=== PATIENT | female | born 1990 | race Two or more races ===

== ENCOUNTER 2018-07-20 11:25 | Inpatient (IN) | payer OTHER, MEDICAID ==
[~2018-07-20] VITALS: Ht 170.2 cm; Wt 80.7 kg
[2018-07-20 11:59] VITALS: BP 118/83
[2018-07-20 12:15] LABS: APPEARANCE,URINE CLEAR; BASOPHILS % (AUTO) 1.8 % (0.0-2.0); BILIRUBIN, URINE NEGATIVE (NEGATIVE); COLOR,URINE PALE YELLOW; EOSINOPHILS % (AUTO) 6.1 % (0.0-3.0); GLUCOSE, URINE (UA) NEGATIVE (NEGATIVE); HEMATOCRIT 41.9 % (37.0-47.0); HEMOGLOBIN 14.5 G/DL (12.0-16.0); KETONES,URINE NEGATIVE (NEGATIVE); LEUKOCYTE ESTERASE ,URINE 3+ (NEGATIVE); LYMPHOCYTES % (AUTO) 39.3 % (20.0-45.0); MEAN CORPUSCULAR VOLUME 86 FL (80-99); MONOCYTES % (AUTO) 4.7 % (1.0-10.0); NEUTROPHILS % (AUTO) 48.2 % (45.0-75.0); NITRITE,URINE NEGATIVE (NEGATIVE); PH,URINE 7 (4.5-8.0); PLATELET COUNT 302 K/UL (150-450); PROTEIN,URINE NEGATIVE (NEGATIVE); RED BLOOD COUNT 4.89 M/UL (4.20-5.40); RED CELL DISTRIBUTION WIDTH 10.3 % (11.6-14.8); UROBILINOGEN,URINE NORMAL MG/DL (0.0-1.0); WHITE BLOOD COUNT 6.7 K/UL (4.8-10.8)
[2018-07-20 12:18] LABS: ANION GAP 11 mmol/L (5-15); BLOOD UREA NITROGEN 8 mg/dL (7-18); CALCIUM 9.5 MG/DL (8.5-10.1); CARBON DIOXIDE 25 MMOL/L (21-32); CHLORIDE 103 MMOL/L (98-107); CREATININE 0.7 MG/DL (0.55-1.30); POTASSIUM 3.7 MMOL/L (3.5-5.1); SODIUM 139 MMOL/L (136-145)
[2018-07-20 12:23] LABS: ALANINE AMINOTRANSFERASE 25 U/L (12-78); ALBUMIN 3.7 G/DL (3.4-5.0); ALBUMIN/GLOBULIN RATIO 0.8 (1.0-2.7); ALKALINE PHOSPHATASE 79 U/L (46-116); ASPARTATE AMINO TRANSFERASE 17 U/L (15-37); BILIRUBIN,TOTAL 0.3 MG/DL (0.2-1.0)
[2018-07-20 13:05] VITALS: BP 100/69
--- NOTE | 2018-07-20 13:20 | Emergency Room Report ---
History of Present Illness General Chief Complaint: General Complaint Source: Patient Present Illness HPI Patient presents emergency department today complaining of severe left axilla pain. Patient states that she has a history of hidradenitis. Symptoms seem to be getting worse she was seen by her surgeon and since emergency department for evaluation and admission. Patient denies any fever chest pain shortness of breath. No other complaints are noted. Symptoms noted to be moderate.No other modifying factors. No other associated signs and symptoms. No other complaints were noted. Allergies: Coded Allergies: No Known Allergies (Unverified , 07/20/18) Patient History Past Medical History: none Past Surgical History: none Pertinent Family History: none Social History: Denies: smoking, alcohol use, drug use Last Menstrual Period: 07/15/18 Reviewed Nursing Documentation: PMH: Agreed; PSxH: Agreed Nursing Documentation-PMH Past Medical History: No Stated History Review of Systems All Other Systems: negative except mentioned in HPI Physical Exam Vital Signs Date Time Temp Pulse Resp B/P (MAP) Pulse Ox O2 Delivery O2 Flow Rate FiO2 07/20/18 11:30 97.9 73 18 137/93 97 Room Air Sp02 EP Interpretation: reviewed, normal General Appearance: normal inspection, well appearing, no apparent distress, alert Head: atraumatic Eyes: bilateral eye normal inspection ENT: normal ENT inspection, hearing grossly normal, normal voice Neck: normal inspection, full range of motion, supple, no bony tend Respiratory: normal inspection, lungs clear, normal breath sounds, no respiratory distress, no retraction, no wheezing Cardiovascular #1: regular rate, rhythm, no edema Gastrointestinal: normal inspection, normal bowel sounds, non tender, soft, no guarding, no hernia Genitourinary: no CVA tenderness Musculoskeletal: normal inspection, back normal, normal range of motion, other - Left axilla swelling consistent with hidradenitis Tender Neurologic: normal inspection, alert, responsive, speech normal Psychiatric: normal inspection, judgement/insight normal, mood/affect normal Skin: normal inspection, normal color, no rash Medical Decision Making Diagnostic Impression: Primary Impression: Hidradenitis ER Course Patient presents emergency department today complaint left axilla pain and swelling. Case discussed with Dr. Victor Manuel inman. Patient will be admitted to their service for further treatment and management. Patient's urine was positive for possible UTI. However patient is asymptomatic therefore we'll hold on antibiotics until further evaluation by inpatient team. Differential diagnoses include hidradenitis lymphadenopathy cellulitis. Given presentation is likely hidradenitis and will require surgical intervention. Labs Test 07/20/18 11:48 White Blood Count 6.7 K/UL (4.8-10.8) Red Blood Count 4.89 M/UL (4.20-5.40) Hemoglobin 14.5 G/DL (12.0-16.0) Hematocrit 41.9 % (37.0-47.0) Mean Corpuscular Volume 86 FL (80-99) Mean Corpuscular Hemoglobin 29.6 PG (27.0-31.0) Mean Corpuscular Hemoglobin Concent 34.5 G/DL (32.0-36.0) Red Cell Distribution Width 10.3 % (11.6-14.8) Platelet Count 302 K/UL (150-450) Mean Platelet Volume 8.7 FL (6.5-10.1) Neutrophils (%) (Auto) 48.2 % (45.0-75.0) Lymphocytes (%) (Auto) 39.3 % (20.0-45.0) Monocytes (%) (Auto) 4.7 % (1.0-10.0) Eosinophils (%) (Auto) 6.1 % (0.0-3.0) Basophils (%) (Auto) 1.8 % (0.0-2.0) Prothrombin Time 10.6 SEC (9.30-11.50) Prothromb Time International Ratio 1.0 (0.9-1.1) Activated Partial Thromboplast Time 30 SEC (23-33) Urine Color Pale yellow Urine Appearance Clear Urine pH 7 (4.5-8.0) Urine Specific [place] 1.005 (1.005-1.035) Urine Protein Negative (NEGATIVE) Urine Glucose (UA) Negative (NEGATIVE) Urine Ketones Negative (NEGATIVE) Urine Blood 5+ (NEGATIVE) Urine Nitrite Negative (NEGATIVE) Urine Bilirubin Negative (NEGATIVE) Urine Urobilinogen Normal MG/DL (0.0-1.0) Urine Leukocyte Esterase 3+ (NEGATIVE) Urine RBC 2-4 /HPF (0 - 2) Urine WBC 5-10 /HPF (0 - 2) Urine Squamous Epithelial Cells Few /LPF (NONE/OCC) Urine Bacteria Few /HPF (NONE) Urine HCG, Qualitative Negative (NEGATIVE) Sodium Level 139 MMOL/L (136-145) Potassium Level 3.7 MMOL/L (3.5-5.1) Chloride Level 103 MMOL/L (98-107) Carbon Dioxide Level 25 MMOL/L (21-32) Anion Gap 11 mmol/L (5-15) Blood Urea Nitrogen 8 mg/dL (7-18) Creatinine 0.7 MG/DL (0.55-1.30) Estimat Glomerular Filtration Rate > 60 mL/min (>60) Glucose Level 92 MG/DL (74-106) Calcium Level 9.5 MG/DL (8.5-10.1) Total Bilirubin 0.3 MG/DL (0.2-1.0) Aspartate Amino Transf (AST/SGOT) 17 U/L (15-37) Alanine Aminotransferase (ALT/SGPT) 25 U/L (12-78) Alkaline Phosphatase 79 U/L (46-116) Total Protein 8.6 G/DL (6.4-8.2) Albumin 3.7 G/DL (3.4-5.0) Globulin 4.9 g/dL Albumin/Globulin Ratio 0.8 (1.0-2.7) Last Vital Signs Date Time Temp Pulse Resp B/P (MAP) Pulse Ox O2 Delivery O2 Flow Rate FiO2 07/20/18 13:15 97.9 74 18 100/69 96 Room Air Status: improved Disposition: ADMITTED INPATIENT Condition: Stable Scripts No Active Prescriptions or Reported Meds Referrals: Jessica Jack MD (PCP) Julius Hamilton MD Jul 20, 2018 13:20
--- NOTE | 2018-07-20 14:14 | History and Physical ---
History of Present Illness General Date patient seen: Jul 20, 2018 Time patient seen: 14:00 Reason for Hospitalization: General Complaint Present Illness HPI 27 yo F PMH of HS presents with complaints of B/L axillary tenderness pain, swelling and intermittent drainage. Patient denies any fevers or chills at home. Patient states she has never had anesthesia before but denies any known allergies to medication. Patient is able to climb a flight of stairs and jog without any chest pain or shortness of breath. Patient has never and does not currently smoke or do drugs. ALL: NKDA Home Meds: None PMH: Hidradenitis Suppurativa PSH: none FmHX: None Soc Hx: etoh - occasional, denies tobacco or drug use Allergies: Coded Allergies: No Known Allergies (Unverified , 07/20/18) Medication History No Active Prescriptions or Reported Meds Patient History Healthcare decision maker Resuscitation status Advanced Directive on File Review of Systems All Other Systems: negative except mentioned in HPI ROS Narrative Aside from HPI all other ROS are negative including more than 12 systems Physical Exam General Appearance: no apparent distress, alert Lines, tubes and drains: peripheral HEENT: normocephalic, atraumatic, anicteric, mucous membranes moist Neck: non-tender, normal alignment, normal inspection Respiratory/Chest: chest wall non-tender, lungs clear, normal breath sounds, no respiratory distress, no accessory muscle use, other - B/L axilla are tender to palpation and erythematous with serosangious drainage Cardiovascular/Chest: normal peripheral pulses, normal rate, regular rhythm, no gallop/murmur, no JVD Abdomen: non tender, soft, no organomegaly, no mass, abnormal bowel sounds Extremities: normal range of motion, non-tender, normal inspection, no calf tenderness Skin Exam: normal pigmentation, warm/dry Neurologic: non acoustic operator II-XII grossly normal, no motor/sensory deficits, oriented x 3 , responsive, normal mood/affect Musculoskeletal: normal muscle bulk Last 24 Hour Vital Signs Date Time Temp Pulse Resp B/P (MAP) Pulse Ox O2 Delivery O2 Flow Rate FiO2 07/20/18 13:15 97.9 74 18 100/69 96 Room Air 07/20/18 13:05 97.9 74 18 100/69 96 Room Air 07/20/18 11:59 97.9 73 18 118/83 96 Room Air 07/20/18 11:40 73 18 Room Air 07/20/18 11:30 97.9 73 18 137/93 97 Room Air Laboratory Tests Test 07/20/18 11:48 White Blood Count 6.7 K/UL (4.8-10.8) Red Blood Count 4.89 M/UL (4.20-5.40) Hemoglobin 14.5 G/DL (12.0-16.0) Hematocrit 41.9 % (37.0-47.0) Mean Corpuscular Volume 86 FL (80-99) Mean Corpuscular Hemoglobin 29.6 PG (27.0-31.0) Mean Corpuscular Hemoglobin Concent 34.5 G/DL (32.0-36.0) Red Cell Distribution Width 10.3 % (11.6-14.8) L Platelet Count 302 K/UL (150-450) Mean Platelet Volume 8.7 FL (6.5-10.1) Neutrophils (%) (Auto) 48.2 % (45.0-75.0) Lymphocytes (%) (Auto) 39.3 % (20.0-45.0) Monocytes (%) (Auto) 4.7 % (1.0-10.0) Eosinophils (%) (Auto) 6.1 % (0.0-3.0) H Basophils (%) (Auto) 1.8 % (0.0-2.0) Prothrombin Time 10.6 SEC (9.30-11.50) Prothromb Time International Ratio 1.0 (0.9-1.1) Activated Partial Thromboplast Time 30 SEC (23-33) Urine Color Pale yellow Urine Appearance Clear Urine pH 7 (4.5-8.0) Urine Specific [place] 1.005 (1.005-1.035) Urine Protein Negative (NEGATIVE) Urine Glucose (UA) Negative (NEGATIVE) Urine Ketones Negative (NEGATIVE) Urine Blood 5+ (NEGATIVE) H Urine Nitrite Negative (NEGATIVE) Urine Bilirubin Negative (NEGATIVE) Urine Urobilinogen Normal MG/DL (0.0-1.0) Urine Leukocyte Esterase 3+ (NEGATIVE) H Urine RBC 2-4 /HPF (0 - 2) H Urine WBC 5-10 /HPF (0 - 2) H Urine Squamous Epithelial Cells Few /LPF (NONE/OCC) Urine Bacteria Few /HPF (NONE) Urine HCG, Qualitative Negative (NEGATIVE) Sodium Level 139 MMOL/L (136-145) Potassium Level 3.7 MMOL/L (3.5-5.1) Chloride Level 103 MMOL/L (98-107) Carbon Dioxide Level 25 MMOL/L (21-32) Anion Gap 11 mmol/L (5-15) Blood Urea Nitrogen 8 mg/dL (7-18) Creatinine 0.7 MG/DL (0.55-1.30) Estimat Glomerular Filtration Rate > 60 mL/min (>60) Glucose Level 92 MG/DL (74-106) Calcium Level 9.5 MG/DL (8.5-10.1) Total Bilirubin 0.3 MG/DL (0.2-1.0) Aspartate Amino Transf (AST/SGOT) 17 U/L (15-37) Alanine Aminotransferase (ALT/SGPT) 25 U/L (12-78) Alkaline Phosphatase 79 U/L (46-116) Total Protein 8.6 G/DL (6.4-8.2) H Albumin 3.7 G/DL (3.4-5.0) Globulin 4.9 g/dL Albumin/Globulin Ratio 0.8 (1.0-2.7) L Height (Feet): 5 Height (Inches): 7.00 Weight (Pounds): 180 Assessment/Plan Problem List: (1) Abscess ICD Codes: L02.91 - Cutaneous abscess, unspecified SNOMED: 980284423 (2) Hidradenitis ICD Codes: L73.2 - Hidradenitis suppurativa SNOMED: 29203300 Status: stable Assessment/Plan B/L Axillary Hidradenitis Suppurativa with Abscess - Patient to be evaluated by Dr. Jack - pain control - IVF and IV ABX - mobilization - IS use - bowel regimen - supportive care - EKG reviewed and NSR with no ST changes or T wave changes If patient is required to have surgery, based on the patient's medical history, and other available ancillary data, the patient is a LOW risk for an INTERMEDIATE risk procedure. Per the most recent ACC/AHA guidelines, the patient does not need any further cardiopulmonary testing prior to the procedure and there do not appear to be any clear medical contraindications to proceeding with the proposed procedure. METs>4 I have spent 70 minute regarding patient care and counseling along with 35 minutes of [id number] time. Cristal Huddleston DO Jul 20, 2018 14:14
[2018-07-20] MEDS ORDERED: PCA HYDROmorphone 1mg/ml 30 ML IV PRN ×2 (14:15→14:30)
[2018-07-20] MEDS ORDERED: Morphine Sulfate 2mg/ml Inj IVP PRN (14:15)
[2018-07-20] MEDS ORDERED: HYDROcodone/Acetamin 10/325 tab ORAL PRN (14:15)
[2018-07-20] MEDS ORDERED: Norco 5mg/325mg tab ORAL PRN (14:15)
[2018-07-20] MEDS ORDERED: Naloxone 0.4mg/ml Inj IVP PRN (14:30)
[2018-07-20] MEDS ORDERED: Rate Change PCA 1 Each MISC PRN (14:30)
[2018-07-20] MEDS ORDERED: PCA Education Pamphlet MISC ONE (14:30)
[2018-07-20] MEDS: ceFAZolin sod 1 GM in D5W 55 ML IVPB SCH ×2 (17:15→21:51)
[2018-07-20] MEDS ORDERED: PCA shift volume MISC SCH (19:00)
[2018-07-20 20:00] VITALS: BP 134/95
[2018-07-20] MEDS ORDERED: Milk of Magnesia 30ml Ud ORAL PRN (21:00)
[2018-07-20] MEDS ORDERED: Zolpidem 5mg tab ORAL PRN (21:00)
[2018-07-20] MEDS: Docusate 100mg cap ORAL SCH (21:51)
[2018-07-20] MEDS: Heparin 5000 units/ml inj SUBQ SCH (21:53)
[2018-07-21] VITALS (15 sets, daily range): BP systolic 130–175; BP diastolic 56–99
[2018-07-21] MEDS: ceFAZolin sod 1 GM in D5W 55 ML IVPB SCH ×3 (06:18→21:02)
[2018-07-21 07:07] LABS: BASOPHILS % (AUTO) 1.9 % (0.0-2.0); EOSINOPHILS % (AUTO) 6.5 % (0.0-3.0); HEMATOCRIT 42.2 % (37.0-47.0); HEMOGLOBIN 14.4 G/DL (12.0-16.0); LYMPHOCYTES % (AUTO) 35.8 % (20.0-45.0); MEAN CORPUSCULAR VOLUME 86 FL (80-99); MONOCYTES % (AUTO) 5.7 % (1.0-10.0); NEUTROPHILS % (AUTO) 50.1 % (45.0-75.0); PLATELET COUNT 304 K/UL (150-450); RED BLOOD COUNT 4.91 M/UL (4.20-5.40); RED CELL DISTRIBUTION WIDTH 10.4 % (11.6-14.8); WHITE BLOOD COUNT 5.9 K/UL (4.8-10.8)
[2018-07-21 07:57] LABS: ANION GAP 11 mmol/L (5-15); BLOOD UREA NITROGEN 10 mg/dL (7-18); CALCIUM 9.2 MG/DL (8.5-10.1); CARBON DIOXIDE 24 MMOL/L (21-32); CHLORIDE 105 MMOL/L (98-107); CREATININE 0.7 MG/DL (0.55-1.30); POTASSIUM 4.3 MMOL/L (3.5-5.1); SODIUM 140 MMOL/L (136-145)
--- NOTE | 2018-07-21 08:08 | General Progress Note ---
Assessment/Plan Problem List: (1) Hidradenitis ICD Codes: L73.2 - Hidradenitis suppurativa SNOMED: 01861197 (2) Abscess ICD Codes: L02.91 - Cutaneous abscess, unspecified SNOMED: 532782939 Status: doing well, stable Assessment/Plan B/L Axillary Hidradenitis Suppurativa with Abscess -planned for eval by Dr. Jack.. planned for surgery today - has been npo since midngith - cont pain control, in no acute pain currently - IVF and iv abx to be continues - mobilization - IS use - bowel regimen - supportive care - EKG reviewed and NSR with no ST changes or T wave changes If patient is required to have surgery, based on the patient's medical history, and other available ancillary data, the patient is a LOW risk for an INTERMEDIATE risk procedure. Per the most recent ACC/AHA guidelines, the patient does not need any further cardiopulmonary testing prior to the procedure and there do not appear to be any clear medical contraindications to proceeding with the proposed procedure. METs>4 I have spent 66 minute regarding patient care and counseling along with 35 minutes of [id number] time. Althea Salas MD Please feel free to contact me at any time. Thank You. Subjective Date patient seen: Jul 21, 2018 Time patient seen: 07:58 Allergies: Coded Allergies: No Known Allergies (Unverified , 07/20/18) All Systems: reviewed and negative except above Subjective patient doing well denies any complaints currently, pain well controlled denies any fevers/chills denies nausea/vomiting denies constipation or diarrhea patient is aware of procedure planned for today has been NPO since midnight Objective Last 24 Hour Vital Signs Date Time Temp Pulse Resp B/P (MAP) Pulse Ox O2 Delivery O2 Flow Rate FiO2 07/21/18 04:47 98.0 76 17 150/89 (109) 98 07/21/18 00:00 98.0 68 16 130/87 (101) 100 07/20/18 20:00 97.1 72 18 134/95 (108) 100 07/20/18 14:38 Room Air 07/20/18 14:24 Room Air 07/20/18 13:15 97.9 74 18 100/69 96 Room Air 07/20/18 13:05 97.9 74 18 100/69 96 Room Air 07/20/18 11:59 97.9 73 18 118/83 96 Room Air 07/20/18 11:40 73 18 Room Air 07/20/18 11:30 97.9 73 18 137/93 97 Room Air Intake and Output 07/20/18 07/21/18 19:00 07:00 Intake Total 390 ml 660 ml Balance 390 ml 660 ml Intake Oral 340 ml IV Total 50 ml 660 ml # Voids 1 2 Laboratory Tests 07/20/18 11:48: White Blood Count 6.7, Red Blood Count 4.89, Hemoglobin 14.5, Hematocrit 41.9, Mean Corpuscular Volume 86, Mean Corpuscular Hemoglobin 29.6, Mean Corpuscular Hemoglobin Concent 34.5, Red Cell Distribution Width 10.3L, Platelet Count 302, Mean Platelet Volume 8.7, Neutrophils (%) (Auto) 48.2, Lymphocytes (%) (Auto) 39.3, Monocytes (%) (Auto) 4.7, Eosinophils (%) (Auto) 6.1H, Basophils (%) (Auto ) 1.8, Prothrombin Time 10.6, Prothromb Time International Ratio 1.0, Activated Partial Thromboplast Time 30, Urine Color Pale yellow, Urine Appearance Clear, Urine pH 7, Urine Specific [place] 1.005, Urine Protein Negative, Urine Glucose (UA) Negative, Urine Ketones Negative, Urine Blood 5+H, Urine Nitrite Negative, Urine Bilirubin Negative, Urine Urobilinogen Normal, Urine Leukocyte Esterase 3+ H, Urine RBC 2-4H, Urine WBC 5-10H, Urine Squamous Epithelial Cells Few, Urine Bacteria Few, Urine HCG, Qualitative Negative, Sodium Level 139, Potassium Level 3.7, Chloride Level 103, Carbon Dioxide Level 25, Anion Gap 11, Blood Urea Nitrogen 8, Creatinine 0.7, Estimat Glomerular Filtration Rate > 60, Glucose Level 92, Calcium Level 9.5, Total Bilirubin 0.3, Aspartate Amino Transf (AST/SGOT) 17, Alanine Aminotransferase (ALT/SGPT) 25, Alkaline Phosphatase 79, Total Protein 8.6H, Albumin 3.7, Globulin 4.9, Albumin/Globulin Ratio 0.8L 07/21/18 06:10: White Blood Count 5.9, Red Blood Count 4.91, Hemoglobin 14.4, Hematocrit 42.2, Mean Corpuscular Volume 86, Mean Corpuscular Hemoglobin 29.3, Mean Corpuscular Hemoglobin Concent 34.1, Red Cell Distribution Width 10.4L, Platelet Count 304, Mean Platelet Volume 8.7, Neutrophils (%) (Auto) 50.1, Lymphocytes (%) (Auto) 35.8, Monocytes (%) (Auto) 5.7, Eosinophils (%) (Auto) 6.5H, Basophils (%) (Auto ) 1.9, Sodium Level [Pending], Potassium Level [Pending], Chloride Level [ Pending], Carbon Dioxide Level [Pending], Blood Urea Nitrogen [Pending], Creatinine [Pending], Estimat Glomerular Filtration Rate [Pending], Glucose Level [Pending], Calcium Level [Pending], Magnesium Level [Pending] Height (Feet): 5 Height (Inches): 7.00 Weight (Pounds): 178 General Appearance: no apparent distress, alert EENT: PERRL/EOMI, normal ENT inspection, pharynx normal Neck: non-tender, normal alignment, supple, normal inspection Cardiovascular: normal peripheral pulses, normal rate, regular rhythm Respiratory/Chest: chest wall non-tender, lungs clear, normal breath sounds, no respiratory distress, no accessory muscle use Abdomen: normal bowel sounds, non tender, soft, no organomegaly, no mass Extremities: normal range of motion, non-tender, normal inspection Skin: other - b/l axillary abscesses with serosanguinous drainage and mild erythema noted, +TTP Althea Salas MD Jul 21, 2018 08:08
[2018-07-21] MEDS: Docusate 100mg cap ORAL SCH ×2 (09:00→18:00)
[2018-07-21] MEDS: Heparin 5000 units/ml inj SUBQ SCH ×2 (09:00→20:19)
[2018-07-21] MEDS ORDERED: Ketorolac 30mg Inj ONE (09:51)
[2018-07-21] MEDS ORDERED: Propofol 200mg/20ml IV ONE (09:51)
[2018-07-21] MEDS ORDERED: Lidocaine 1% MPF 10mg/ml 5ml ONE (09:51)
--- NOTE | 2018-07-21 10:05 | Pre-Procedure Note/Attestation ---
Pre-Procedure Note/Attestation Complete Prior to Procedure Planned Procedure: bilateral Procedure Narrative: Excision of bilateral axillary hidradenitis with chest wall flap elevation Attestation I attest that I discussed the nature of the procedure; its benefits; risks and complications; and alternatives (and the risks and benefits of such alternatives ), prior to the procedure, with the patient (or the patient's legal access services representative). I attest that, if there was a reasonable possibility of needing a blood transfusion, the patient (or the patient's legal access services representative) was given the [facility] standardized written summary, pursuant to the Vishal Sasha Blood Safety Act ([place] Health and Safety Code # 1645, as amended). I attest that I re-evaluated the patient just prior to the surgery and that there has been no change in the patient's H&P, except as documented below: Jessica Jack MD Jul 21, 2018 10:05
[2018-07-21] MEDS ORDERED: Metoclopramide 10mg/2ml Inj IVP PRN ×2 (10:15→11:30)
[2018-07-21] MEDS ORDERED: PCA Education Pamphlet MISC ONE (10:15)
[2018-07-21] MEDS ORDERED: DiphenhydrAMINE 50mg/ml Inj IVP PRN ×2 (10:15→11:30)
[2018-07-21] MEDS ORDERED: Rate Change PCA 1 Each MISC PRN ×2 (10:15→14:30)
[2018-07-21] MEDS ORDERED: Zolpidem 5mg tab ORAL PRN (10:15)
[2018-07-21] MEDS ORDERED: NeoSporin Gu Irrig 1ml Amp IRRIG ONE (10:22)
[2018-07-21] MEDS ORDERED: Bacitracin 50000 Units Vial ONE (10:22)
[2018-07-21] MEDS ORDERED: Lidocaine 1% 10mg/ml/Epi 0.005mg/ml 30ml vial INJ ONE (10:22)
[2018-07-21] MEDS ORDERED: fentaNYL 100 mcg/2 mL IV ONE (10:30)
[2018-07-21] MEDS ORDERED: Naloxone 0.4mg/ml Inj IV PRN ×2 (10:30→13:00)
[2018-07-21] MEDS ORDERED: LR 1000ml ONE (10:30)
[2018-07-21] MEDS ORDERED: Midazolam 2mg/2ml Inj ONE (10:30)
[2018-07-21] MEDS ORDERED: Morphine Sulfate 10mg/ml Inj ONE (11:08)
[2018-07-21] MEDS ORDERED: LR 1000ml 1,000 ML IVLG SCH (11:19)
--- NOTE | 2018-07-21 11:19 | Anethesia Preoperative Eval ---
Anesthesia Pre-op PMH/ROS General Date of Evaluation: Jul 21, 2018 Time of Evaluation: 10:05 Anesthesiologist: Manjula ASA Score: ASA 2 Mallampati Score Class I : Soft palate, uvula, fauces, pillars visible Class II: Soft palate, uvula, fauces visible Class III: Soft palate, base of uvula visible Class IV: Only hard plate visible Mallampati Classification: Class II Surgeon: Marcie Diagnosis: Bilateral axillary HS Surgical Procedure: Excision of bilateral axillary HS Anesthesia History: none Family History: no anesthesia problems Allergies: Coded Allergies: No Known Allergies (Unverified , 07/20/18) Patient NPO?: Yes NPO Date: Jul 21, 2018 NPO Time: 0000 Past Medical History Cardiovascular: Denies: HTN, CAD, [place], valve dz, arrhythmia, other Pulmonary: Denies: asthma, COPD, ANKIT, other Gastrointestinal/Genitourinary: Reports: GERD - mild; Denies: CRI, ESRD, other Neurologic/Psychiatric: Reports: depression/anxiety Endocrine: Denies: DM, hypothyroidism, steroids, other HEENT: Denies: cataract (L), cataract (R), glaucoma, [place] (L), [place] (R), other Hematology/Immune: Denies: anemia, DVT, bleeding disorder, other Musculoskeletal/Integumentary: Denies: OA, RA, DJD, DDD, edema, other PMH Narrative: as above PSxH Narrative: none Anesthesia Pre-op Phys. Exam Physician Exam Last Vital Signs Date Time Temp Pulse Resp B/P (MAP) Pulse Ox O2 Delivery O2 Flow Rate FiO2 07/21/18 09:00 Room Air 07/21/18 08:00 98.5 85 19 139/99 (112) 98 Constitutional: NAD Neurologic: CN 2-12 intact Cardiovascular: RRR, no M/R/G Respiratory: CTA Gastrointestinal: S/NT/ND Airway Exam Mallampati Score: Class II MO: full Neck: flexible ROM: full Teeth: intact Dentures: no upper, no lower Anesthesia Pre-op A/P Labs Hematology Test 07/20/18 11:48 07/21/18 06:10 White Blood Count 6.7 K/UL (4.8-10.8) 5.9 K/UL (4.8-10.8) Red Blood Count 4.89 M/UL (4.20-5.40) 4.91 M/UL (4.20-5.40) Hemoglobin 14.5 G/DL (12.0-16.0) 14.4 G/DL (12.0-16.0) Hematocrit 41.9 % (37.0-47.0) 42.2 % (37.0-47.0) Mean Corpuscular Volume 86 FL (80-99) 86 FL (80-99) Mean Corpuscular Hemoglobin 29.6 PG (27.0-31.0) 29.3 PG (27.0-31.0) Mean Corpuscular Hemoglobin Concent 34.5 G/DL (32.0-36.0) 34.1 G/DL (32.0-36.0) Red Cell Distribution Width 10.3 % (11.6-14.8) L 10.4 % (11.6-14.8) L Platelet Count 302 K/UL (150-450) 304 K/UL (150-450) Mean Platelet Volume 8.7 FL (6.5-10.1) 8.7 FL (6.5-10.1) Neutrophils (%) (Auto) 48.2 % (45.0-75.0) 50.1 % (45.0-75.0) Lymphocytes (%) (Auto) 39.3 % (20.0-45.0) 35.8 % (20.0-45.0) Monocytes (%) (Auto) 4.7 % (1.0-10.0) 5.7 % (1.0-10.0) Eosinophils (%) (Auto) 6.1 % (0.0-3.0) H 6.5 % (0.0-3.0) H Basophils (%) (Auto) 1.8 % (0.0-2.0) 1.9 % (0.0-2.0) Coagulation Test 07/20/18 11:48 Prothrombin Time 10.6 SEC (9.30-11.50) Prothromb Time International Ratio 1.0 (0.9-1.1) Activated Partial Thromboplast Time 30 SEC (23-33) Chemistry Test 07/20/18 11:48 07/21/18 06:10 Sodium Level 139 MMOL/L (136-145) 140 MMOL/L (136-145) Potassium Level 3.7 MMOL/L (3.5-5.1) 4.3 MMOL/L (3.5-5.1) Chloride Level 103 MMOL/L (98-107) 105 MMOL/L (98-107) Carbon Dioxide Level 25 MMOL/L (21-32) 24 MMOL/L (21-32) Anion Gap 11 mmol/L (5-15) 11 mmol/L (5-15) Blood Urea Nitrogen 8 mg/dL (7-18) 10 mg/dL (7-18) Creatinine 0.7 MG/DL (0.55-1.30) 0.7 MG/DL (0.55-1.30) Estimat Glomerular Filtration Rate > 60 mL/min (>60) > 60 mL/min (>60) Glucose Level 92 MG/DL (74-106) 113 MG/DL (74-106) H Calcium Level 9.5 MG/DL (8.5-10.1) 9.2 MG/DL (8.5-10.1) Total Bilirubin 0.3 MG/DL (0.2-1.0) Aspartate Amino Transf (AST/SGOT) 17 U/L (15-37) Alanine Aminotransferase (ALT/SGPT) 25 U/L (12-78) Alkaline Phosphatase 79 U/L (46-116) Total Protein 8.6 G/DL (6.4-8.2) H Albumin 3.7 G/DL (3.4-5.0) Globulin 4.9 g/dL Albumin/Globulin Ratio 0.8 (1.0-2.7) L Magnesium Level 2.2 MG/DL (1.8-2.4) Urine Test Test 07/20/18 11:48 Urine HCG, Qualitative Negative (NEGATIVE) Risk Assessment & Plan Assessment: ASA 2 Plan: GA with LMA PONV prevention Status Change Before Surgery: No Pre-Antibiotics Drug: Ancef 1gr Given Within 1 Hr of Incision: Yes Time Given: 10:56 Emile Fair MD Jul 21, 2018 11:19
[2018-07-21] MEDS ORDERED: fentaNYL 100 mcg/2 mL IV PRN (11:30)
[2018-07-21] MEDS ORDERED: Midazolam 2mg/2ml Inj IVP PRN (11:30)
[2018-07-21] MEDS ORDERED: Meperidine 50mg/ml Inj(FOR RIGORS ONLY) IV PRN (11:30)
[2018-07-21] MEDS ORDERED: Ketorolac 30mg Inj IV PRN (11:30)
--- NOTE | 2018-07-21 12:09 | Operative Note - PDOC ---
Operative Note Operative Note Pre-op Diagnosis: Bilateral axillary hidradenitis Procedure: Excision of bilateral hidradenitis and lateral chest wall flap elevation Post-op Diagnosis: same as pre-op Surgeon: Marcie Urologic Nurse: Fausto Anesthesia: general Specimen: yes Complications: none Condition: stable Estimated Blood Loss: none Drains: none Implant(s) used?: No Jessica Jack MD Jul 21, 2018 12:09
--- NOTE | 2018-07-21 12:20 | Immediate Post-Op Evaluation ---
Immediate Post-Op Evalulation Immediate Post-Op Evalulation Procedure: Excision of bilateral axillary HS Date of Evaluation: Jul 21, 2018 Time of Evaluation: 12:19 IV Fluids: 1000 Blood Products: none Estimated Blood Loss: 50 Urinary Output: none Blood Pressure Systolic: 148 Blood Pressure Diastolic: 76 Pulse Rate: 86 Respiratory Rate: 20 O2 Sat by Pulse Oximetry: 99 Temperature (Fahrenheit): 97.8 Pain Score (1-10): 2 Nausea: No Vomiting: No Complications none Patient Status: reacts, patent, none Hydration Status: adequate Emile Fair MD Jul 21, 2018 12:20
[2018-07-21] MEDS: PCA HYDROmorphone 1mg/ml 30 ML IV PRN (13:13)
[2018-07-21] MEDS ORDERED: ceFAZolin sod 1 GM in D5W 55 ML IVPB SCH (14:00)
[2018-07-21] MEDS ORDERED: Naloxone 0.4mg/ml Inj IVP PRN (14:30)
[2018-07-21] MEDS ORDERED: PCA HYDROmorphone 1mg/ml 30 ML IV PRN (14:30)
--- NOTE | 2018-07-21 17:01 | Cardiology Report ---
APPROVED REPORT EKG Measurement Heart [id number] Normal sinus rhythm with sinus arrhythmia Normal ECG
--- NOTE | 2018-07-21 18:45 | Consultation ---
DATE OF CONSULTATION: 07/21/2018 REASON FOR CONSULTATION: Bilateral axillary hidradenitis. HISTORY OF PRESENT ILLNESS: This is a 27-year-old female, who was admitted by the medical team to the emergency room for bilateral axillary pain and drainage. She was admitted, started on IV antibiotics, and has had this condition for several years, and has been not responding to medical therapy, currently has an abscess under both arms causing significant pain and tenderness. PAST MEDICAL HISTORY: Significant for hidradenitis, stage III. PAST SURGICAL HISTORY: None. ALLERGIES: None. MEDICATIONS: None besides the fact that she has previously tried antibiotics. PHYSICAL EXAMINATION: GENERAL: The patient is alert and oriented. HEART: Regular rate and rhythm. ABDOMEN: Soft, nontender, and nondistended. Examination of the trunk reveals bilateral axillary hidradenitis with abscesses grade 3 on both sides with tenderness and drainage along the inferior aspect of the axilla. ASSESSMENT AND PLAN: This is a 27-year-old female, who was admitted for bilateral axillary abscesses, has been started on IV antibiotics. She will undergo bilateral axillary excision of hidradenitis with staged reconstruction where we would be raising the lateral chest wall flaps at the first operation at the same time as the excision of the disease followed by 48 hours of wound care and IV antibiotics and then definitive flap inset and closure within two days of the excision. She understands with the plan and agrees to proceed. Jessica Jack M.D. DR: Jose JOB#: [id number] CC: [id number]
[2018-07-21] MEDS: PCA shift volume MISC SCH (19:00)
[2018-07-21] MEDS ORDERED: PCA shift volume MISC SCH (19:00)
--- NOTE | 2018-07-21 20:30 | Operative Note - Dictated ---
DATE OF OPERATION: 07/21/2018 PREOPERATIVE DIAGNOSIS: Bilateral stage III hidradenitis in the axilla. POSTOPERATIVE DIAGNOSIS: Bilateral stage III hidradenitis in the axilla. PROCEDURES: 1. Excision of left axillary hidradenitis resulting in defect of 10 x 8 cm. 2. Elevation of a lateral chest wall flap for staged closure of left axillary wound flap measurements are 10 x 5 cm. 3. Excision of right axillary hidradenitis resulting in a defect of 11 x 7 cm. 4. Elevation of a lateral chest wall flap for staged closure of right axillary wound with flap measurements of 11 x 5 cm. SURGEON: Jessica Jack M.D. ENSEMBLE MEMBER: Alma Lambert M.D. ANESTHESIA: General. COMPLICATIONS: None. DRAINS: None. DISPOSITION: Stable to the recovery room. INDICATIONS FOR SURGERY: This is a 27-year-old female who presented with advanced hidradenitis of bilateral axilla with pain and drainage. She was admitted by the medical team, started on IV antibiotics, and upon evaluation by me, I felt that she was an appropriate candidate for staged excision and reconstruction of her wounds. She understood the risks and benefits of surgery and agreed to proceed. DETAILS OF THE OPERATION: The patient was brought to the operating room and laid supine on the operating table. Her bilateral axillae were prepped and draped in a sterile and usual fashion. A bump had been placed on the upper back on the left side to allow for full visualization of the axilla and the lateral chest wall. Marking pen was used to delineate the extent of her left axillary disease. Once this was done, a #10 blade was then used to make the incision to excise the diseased bearing axillary tissue all the way down to the level of the axillary fascia. Electrocautery used to remove the tissue on block. This resulted in a defect that measured 10 x 8 cm on this side. This was clearly not amenable to primary closure. As such, a lateral chest wall flap based off of perforators of the thoracodorsal artery was designed and the measurements of the flap were 10 x 5 cm. This U shaped flap was then cut using a #15 blade with dissection carried down all the way down the level of the latissimus muscle fascia and with the flap fully mobilized, we noted that the flap could be inset into the defect and providing full soft tissue coverage of the defect however given that this was an infection the plan was not to perform definitive closure of the wound at this time and for the patient to be brought back within 48 hours for definitive closure. We then turned our attention to the contralateral axilla. Markings had been made. A #10-blade was then used to make the skin incision and electrocautery was then used to remove the axillary tissue bearing the hidradenitis all way down to the level of the axillary fascia to remove the specimen on block, this resulted in a defect that measured 11 x 7 cm. As was done on the other side, it was noted that this could not be closed primarily. As such, a lateral chest wall flap based off of perforators of the thoracodorsal artery had to be elevated. This U-shaped flap was designed. A #15 blade was then used to make the U-shaped incision. Dissection was carried down to the level of the latissimus muscle fascia and we noted the perforators of the thoracodorsal artery entering the flap and allowing for the flap to be transposed while maintaining its blood supply. Again as was done on the other side because of presence of the infection, the flap was not definitively inset. The wound was copiously irrigated with pulse lavage. Hemostasis was achieved. The flap as was done on the other side was placed back in the donor site and stapled in position. The wound was packed and the patient was brought back to the operating room for definitive flap inset within 48 hours. Between now and then, the patient will be getting IV antibiotics and wet-to-dry dressing changes and we will also observe the flaps for improved vascularity over this next 48 hour period. Jessica Jack M.D. DR: Jose JOB#: [id number] CC:
[2018-07-22] VITALS: BP 143/89
[2018-07-22 04:00] VITALS: BP 129/87
[2018-07-22] MEDS: ceFAZolin sod 1 GM in D5W 55 ML IVPB SCH ×3 (05:03→21:45)
[2018-07-22] MEDS: PCA shift volume MISC SCH ×2 (07:00→19:00)
[2018-07-22 08:00] VITALS: BP 132/86
[2018-07-22] MEDS: Docusate 100mg cap ORAL SCH ×2 (09:17→18:39)
[2018-07-22] MEDS: Heparin 5000 units/ml inj SUBQ SCH ×2 (09:20→21:44)
--- NOTE | 2018-07-22 10:05 | General Progress Note ---
Progress Note Progress Note Pt seen and examined. POD # 1 and doing well. Pain is well controlled and dressings are CDI. Plan for OR tomorrow for wound closures. Jessica Jack M.D. Jessica Jack MD Jul 22, 2018 10:05
[2018-07-22 12:00] VITALS: BP 124/85
--- NOTE | 2018-07-22 12:28 | General Progress Note ---
Assessment/Plan Problem List: (1) Hidradenitis ICD Codes: L73.2 - Hidradenitis suppurativa SNOMED: 54745684 (2) Abscess ICD Codes: L02.91 - Cutaneous abscess, unspecified SNOMED: 437008884 Status: doing well, stable Assessment/Plan B/L Axillary Hidradenitis Suppurativa with Abscess - POD1 s/p excision per Dr. Jack.. doing well, planned for flap closure tomorrow - cont pain control - stable - IVF and iv abx to be continues - mobilization - IS use - bowel regimen - supportive care I have spent 68 minute regarding patient care and counseling along with 35 minutes of [id number] time. Althea Salas MD Please feel free to contact me at any time. Thank You. Subjective Allergies: Coded Allergies: No Known Allergies (Unverified , 07/20/18) Subjective POD1 s/p excision denies any complaints states she is having regular BMs denies constipation/diarrhea/nausea denies fevers/chills pain well controlled Objective Last 24 Hour Vital Signs Date Time Temp Pulse Resp B/P (MAP) Pulse Ox O2 Delivery O2 Flow Rate FiO2 07/22/18 12:00 98.1 75 20 124/85 (98) 98 07/22/18 09:00 Room Air 07/22/18 08:00 97.9 85 18 132/86 (101) 97 07/22/18 08:00 18 07/22/18 04:00 18 07/22/18 04:00 98.2 91 18 129/87 (101) 97 07/22/18 00:00 97.9 83 18 143/89 (107) 97 07/22/18 00:00 18 07/21/18 21:00 Room Air 07/21/18 20:00 97.8 74 18 133/93 (106) 98 07/21/18 20:00 18 07/21/18 16:00 18 07/21/18 16:00 97.4 78 18 134/94 (107) 100 07/21/18 15:00 97.7 76 19 134/94 (107) 99 07/21/18 14:30 97.7 75 18 134/94 (107) 98 07/21/18 14:00 18 07/21/18 14:00 97.7 69 18 130/94 (106) 99 07/21/18 13:45 15 07/21/18 13:30 16 07/21/18 13:13 97.6 79 18 159/85 96 Room Air 79 07/21/18 13:13 13 07/21/18 13:00 80 20 155/87 96 Room Air 80 07/21/18 12:56 81 20 162/93 96 Room Air 81 07/21/18 12:45 83 19 175/84 98 Room Air 83 07/21/18 12:30 81 18 151/92 97 Room Air 81 Intake and Output 07/21/18 07/22/18 19:00 07:00 Intake Total 200 ml 610 ml Balance 200 ml 610 ml IV Total 200 ml 610 ml Height (Feet): 5 Height (Inches): 7.00 Weight (Pounds): 178 General Appearance: WD/WN, no apparent distress, alert EENT: PERRL/EOMI, normal ENT inspection, TMs normal, pharynx normal Neck: non-tender, normal alignment, supple, normal inspection Cardiovascular: normal peripheral pulses, normal rate, regular rhythm Respiratory/Chest: chest wall non-tender, lungs clear, normal breath sounds, no respiratory distress, no accessory muscle use Abdomen: normal bowel sounds, non tender, soft, no organomegaly, no mass Neurologic: principal technical specialist II-XII grossly normal, no motor/sensory deficits, abnormal gait , alert, oriented x 3, responsive, normal mood/affect Skin: normal pigmentation, warm/dry Althea Salas MD Jul 22, 2018 12:28
--- NOTE | 2018-07-22 12:29 | 48 Hour Post Anesthesia Eval ---
Post Anesthesia Evaluation Procedure: Excision of bilateral axillary HS Date of Evaluation: Jul 22, 2018 Time of Evaluation: 12:28 Blood Pressure Systolic: 124 0: 72 Pulse Rate: 82 Respiratory Rate: 20 Temperature (Fahrenheit): 97.6 O2 Sat by Pulse Oximetry: 98 Airway: patent Nausea: No Vomiting: No Pain Intensity: 2 Hydration Status: adequate Cardiopulmonary Status: stable Mental Status/LOC: patient returned to baseline Follow-up Care/Observations: n/a Post-Anesthesia Complications: none Follow-up care needed: N/A Emile Fair MD Jul 22, 2018 12:29
[2018-07-22 16:00] VITALS: BP 126/85
[2018-07-22 20:00] VITALS: BP 135/90
[2018-07-22] MEDS: PCA HYDROmorphone 1mg/ml 30 ML IV PRN (21:34)
[2018-07-23] VITALS (12 sets, daily range): BP systolic 135–160; BP diastolic 78–105
[2018-07-23] MEDS: ceFAZolin sod 1 GM in D5W 55 ML IVPB SCH ×3 (05:32→22:02)
[2018-07-23 06:29] LABS: EOSINOPHILS % (AUTO) 2.6 % (0.0-3.0); HEMATOCRIT 37.5 % (37.0-47.0); HEMOGLOBIN 13.2 G/DL (12.0-16.0); LYMPHOCYTES % (AUTO) 29.2 % (20.0-45.0); MEAN CORPUSCULAR VOLUME 86 FL (80-99); MONOCYTES % (AUTO) 7.3 % (1.0-10.0); PLATELET COUNT 288 K/UL (150-450); RED BLOOD COUNT 4.35 M/UL (4.20-5.40); RED CELL DISTRIBUTION WIDTH 10.3 % (11.6-14.8); WHITE BLOOD COUNT 8.5 K/UL (4.8-10.8)
[2018-07-23 06:38] LABS: ANION GAP 8 mmol/L (5-15); BLOOD UREA NITROGEN 6 mg/dL (7-18); CARBON DIOXIDE 27 MMOL/L (21-32); CHLORIDE 108 MMOL/L (98-107); CREATININE 0.7 MG/DL (0.55-1.30); SODIUM 142 MMOL/L (136-145)
[2018-07-23] MEDS: PCA shift volume MISC SCH ×2 (07:15→19:00)
--- NOTE | 2018-07-23 08:39 | General Progress Note ---
Assessment/Plan Problem List: (1) Hidradenitis ICD Codes: L73.2 - Hidradenitis suppurativa SNOMED: 20587926 (2) Abscess ICD Codes: L02.91 - Cutaneous abscess, unspecified SNOMED: 076864228 Assessment/Plan B/L Axillary Hidradenitis Suppurativa with Abscess - POD2 s/p excision per Dr. Jack.. doing well - planned for OR today - cont pain control - stable - IVF and iv abx to be continues - mobilization - IS use - bowel regimen - supportive care I have spent over 45 minute regarding patient care and counseling along with 35 minutes of [id number] time. Althea Salas MD Please feel free to contact me at any time. Thank You. Subjective Allergies: Coded Allergies: No Known Allergies (Unverified , 07/20/18) Subjective POD2 s/p excision denies any complaints doing well no acute events overnight plan for OR today denies any n/v denies any cp or sob denies any diarrhea/constipation 12 point ros negative except for the above Objective Last 24 Hour Vital Signs Date Time Temp Pulse Resp B/P (MAP) Pulse Ox O2 Delivery O2 Flow Rate FiO2 07/23/18 08:00 98.5 89 20 139/94 (109) 100 07/23/18 08:00 18 07/23/18 04:00 98.0 77 20 135/85 (102) 98 07/23/18 04:00 18 07/23/18 00:00 16 07/23/18 00:00 98.0 80 20 135/91 (106) 97 07/22/18 21:00 Room Air 07/22/18 20:00 17 07/22/18 20:00 97.6 72 18 135/90 (105) 100 07/22/18 16:00 18 07/22/18 16:00 99.7 83 20 126/85 (99) 99 07/22/18 12:29 82 20 98 07/22/18 12:00 98.1 75 20 124/85 (98) 98 07/22/18 12:00 18 07/22/18 09:00 Room Air Intake and Output 07/22/18 07/23/18 19:00 07:00 Intake Total 720 ml 410 ml Balance 720 ml 410 ml Intake Oral 720 ml IV Total 410 ml # Voids 2 3 Laboratory Tests 07/23/18 05:10: White Blood Count 8.5, Red Blood Count 4.35, Hemoglobin 13.2, Hematocrit 37.5, Mean Corpuscular Volume 86, Mean Corpuscular Hemoglobin 30.4, Mean Corpuscular Hemoglobin Concent 35.3, Red Cell Distribution Width 10.3L, Platelet Count 288, Mean Platelet Volume 8.4, Neutrophils (%) (Auto) 60.0, Lymphocytes (%) (Auto) 29.2, Monocytes (%) (Auto) 7.3, Eosinophils (%) (Auto) 2.6, Basophils (%) (Auto ) 1.0, Sodium Level 142, Potassium Level 4.0, Chloride Level 108H, Carbon Dioxide Level 27, Anion Gap 8, Blood Urea Nitrogen 6L, Creatinine 0.7, Estimat Glomerular Filtration Rate > 60, Glucose Level 98, Calcium Level 9.0 Height (Feet): 5 Height (Inches): 7.00 Weight (Pounds): 178 General Appearance: WD/WN, no apparent distress, alert EENT: PERRL/EOMI, normal ENT inspection, TMs normal, pharynx normal Neck: non-tender, normal alignment, supple, normal inspection Cardiovascular: normal peripheral pulses, normal rate, regular rhythm Respiratory/Chest: chest wall non-tender, lungs clear, normal breath sounds, no respiratory distress, no accessory muscle use Abdomen: normal bowel sounds, non tender, soft Extremities: normal range of motion, non-tender, normal inspection Neurologic: system safety engineer II-XII grossly normal, no motor/sensory deficits, alert, oriented x 3, responsive, normal mood/affect Skin: warm/dry Althea Salas MD Jul 23, 2018 08:39
[2018-07-23] MEDS: Docusate 100mg cap ORAL SCH ×2 (09:00→18:42)
[2018-07-23] MEDS: Heparin 5000 units/ml inj SUBQ SCH ×2 (09:00→21:59)
[2018-07-23] MEDS ORDERED: Rate Change PCA 1 Each MISC PRN ×2 (12:45→14:30)
[2018-07-23] MEDS ORDERED: PCA HYDROmorphone 1mg/ml 30 ML IV PRN ×2 (13:00→14:30)
--- NOTE | 2018-07-23 14:17 | Pre-Procedure Note/Attestation ---
Pre-Procedure Note/Attestation Complete Prior to Procedure Planned Procedure: bilateral Procedure Narrative: Bilateral axillary wound flap closure Indications for Procedure Pre-Operative Diagnosis: Bilateral axillary hidradenitis Attestation I attest that I discussed the nature of the procedure; its benefits; risks and complications; and alternatives (and the risks and benefits of such alternatives ), prior to the procedure, with the patient (or the patient's legal patient support representative). I attest that, if there was a reasonable possibility of needing a blood transfusion, the patient (or the patient's legal patient support representative) was given the [facility] standardized written summary, pursuant to the [place] Blood Safety Act ([place] Health and Safety Code # 1645, as amended). I attest that I re-evaluated the patient just prior to the surgery and that there has been no change in the patient's H&P, except as documented below: Jessica Jack MD Jul 23, 2018 14:17
[2018-07-23] MEDS ORDERED: Metoclopramide 10mg/2ml Inj IVP PRN ×2 (14:30→16:00)
[2018-07-23] MEDS ORDERED: PCA Education Pamphlet MISC ONE (14:30)
[2018-07-23] MEDS ORDERED: Propofol 200mg/20ml IV ONE ×2 (14:35→15:27)
[2018-07-23] MEDS ORDERED: Bacitracin 50000 Units Vial ONE (14:35)
[2018-07-23] MEDS ORDERED: Lidocaine 1% MPF 10mg/ml 5ml ONE (14:35)
[2018-07-23] MEDS ORDERED: NeoSporin Gu Irrig 1ml Amp IRRIG ONE (14:35)
[2018-07-23] MEDS ORDERED: Midazolam 2mg/2ml Inj ONE (14:35)
[2018-07-23] MEDS ORDERED: Lidocaine 1% 10mg/ml/EPI 0.01mg/ml 50ml INJ ONE (14:35)
[2018-07-23] MEDS ORDERED: fentaNYL 100 mcg/2 mL IV ONE (14:35)
[2018-07-23] MEDS ORDERED: EPINEPHrine 1mg/1ml Amp ONE (14:35)
[2018-07-23] MEDS ORDERED: Morphine Sulfate 10mg/ml Inj ONE (14:35)
[2018-07-23] MEDS ORDERED: Sterile Water Irrig 1000ml IRRIG ONE (15:00)
[2018-07-23] MEDS ORDERED: NS Irrig 1000ml ONE (15:00)
[2018-07-23] MEDS ORDERED: LR 1000ml ONE (15:00)
[2018-07-23] MEDS ORDERED: Sodium Chloride 10ml vial INJ ONE (15:43)
[2018-07-23] MEDS ORDERED: LR 1000ml 1,000 ML IVLG SCH (15:51)
--- NOTE | 2018-07-23 15:51 | Anethesia Preoperative Eval ---
Anesthesia Pre-op PMH/ROS General Date of Evaluation: Jul 23, 2018 Time of Evaluation: 14:50 Anesthesiologist: Manjula ASA Score: ASA 2 Mallampati Score Class I : Soft palate, uvula, fauces, pillars visible Class II: Soft palate, uvula, fauces visible Class III: Soft palate, base of uvula visible Class IV: Only hard plate visible Mallampati Classification: Class II Surgeon: Marcie Diagnosis: Recurrent HS Surgical Procedure: Revision and closure of bilateral axillary wounds Anesthesia History: none Family History: no anesthesia problems Allergies: Coded Allergies: No Known Allergies (Unverified , 07/20/18) Patient NPO?: Yes NPO Date: Jul 23, 2018 NPO Time: 0000 Past Medical History Cardiovascular: Denies: HTN, CAD, CT, valve dz, arrhythmia, other Pulmonary: Denies: asthma, COPD, ANKIT, other Gastrointestinal/Genitourinary: Reports: GERD; Denies: CRI, ESRD, other Neurologic/Psychiatric: Reports: depression/anxiety; Denies: dementia, CVA, TIA, other Endocrine: Denies: DM, hypothyroidism, steroids, other HEENT: Denies: cataract (L), cataract (R), glaucoma, UTE (L), UTE (R), other Hematology/Immune: Denies: anemia, DVT, bleeding disorder, other Musculoskeletal/Integumentary: Reports: other - recurrent HS; Denies: OA, RA, DJD, DDD, edema PMH Narrative: as above PSxH Narrative: Excision of axillary HS Anesthesia Pre-op Phys. Exam Physician Exam Last Vital Signs Date Time Temp Pulse Resp B/P (MAP) Pulse Ox O2 Delivery O2 Flow Rate FiO2 07/23/18 12:00 98.7 90 20 139/91 (107) 98 07/23/18 09:00 Room Air 07/21/18 12:20 6 Constitutional: NAD Neurologic: CN 2-12 intact Cardiovascular: RRR, no M/R/G Respiratory: CTA Gastrointestinal: S/NT/ND Airway Exam Mallampati Score: Class II MO: full Neck: flexible ROM: full Teeth: intact Dentures: no upper, no lower Anesthesia Pre-op A/P Labs Hematology Test 07/23/18 05:10 White Blood Count 8.5 K/UL (4.8-10.8) Red Blood Count 4.35 M/UL (4.20-5.40) Hemoglobin 13.2 G/DL (12.0-16.0) Hematocrit 37.5 % (37.0-47.0) Mean Corpuscular Volume 86 FL (80-99) Mean Corpuscular Hemoglobin 30.4 PG (27.0-31.0) Mean Corpuscular Hemoglobin Concent 35.3 G/DL (32.0-36.0) Red Cell Distribution Width 10.3 % (11.6-14.8) L Platelet Count 288 K/UL (150-450) Mean Platelet Volume 8.4 FL (6.5-10.1) Neutrophils (%) (Auto) 60.0 % (45.0-75.0) Lymphocytes (%) (Auto) 29.2 % (20.0-45.0) Monocytes (%) (Auto) 7.3 % (1.0-10.0) Eosinophils (%) (Auto) 2.6 % (0.0-3.0) Basophils (%) (Auto) 1.0 % (0.0-2.0) Chemistry Test 07/23/18 05:10 Sodium Level 142 MMOL/L (136-145) Potassium Level 4.0 MMOL/L (3.5-5.1) Chloride Level 108 MMOL/L (98-107) H Carbon Dioxide Level 27 MMOL/L (21-32) Anion Gap 8 mmol/L (5-15) Blood Urea Nitrogen 6 mg/dL (7-18) L Creatinine 0.7 MG/DL (0.55-1.30) Estimat Glomerular Filtration Rate > 60 mL/min (>60) Glucose Level 98 MG/DL (74-106) Calcium Level 9.0 MG/DL (8.5-10.1) Risk Assessment & Plan Assessment: ASA 2 Plan: GA with LMA Status Change Before Surgery: No Pre-Antibiotics Drug: Ancef 1gr. Given Within 1 Hr of Incision: Yes Time Given: 15:05 Emile Fair MD Jul 23, 2018 15:51
[2018-07-23] MEDS ORDERED: fentaNYL 100 mcg/2 mL IV PRN (16:00)
[2018-07-23] MEDS ORDERED: Ketorolac 30mg Inj IV PRN (16:00)
[2018-07-23] MEDS ORDERED: Meperidine 50mg/ml Inj(FOR RIGORS ONLY) IV PRN (16:00)
[2018-07-23] MEDS ORDERED: DiphenhydrAMINE 50mg/ml Inj IVP PRN (16:00)
[2018-07-23] MEDS ORDERED: Midazolam 2mg/2ml Inj IVP PRN (16:00)
[2018-07-23] MEDS ORDERED: Ketorolac 30mg Inj ONE (16:44)
--- NOTE | 2018-07-23 16:53 | Operative Note - PDOC ---
Operative Note Operative Note Pre-op Diagnosis: Bilateral axillary hidradenitis Procedure: Bilateral axillary wound closures Post-op Diagnosis: same as pre-op Surgeon: Marcie Materials Scientist: Fausto Anesthesia: general Specimen: yes Complications: none Condition: stable Estimated Blood Loss: none Drains: DAR Implant(s) used?: No Jessica Jack MD Jul 23, 2018 16:53
--- NOTE | 2018-07-23 17:09 | Immediate Post-Op Evaluation ---
Immediate Post-Op Evalulation Immediate Post-Op Evalulation Procedure: Revision and closure of bilateral axillary wounds Date of Evaluation: Jul 23, 2018 Time of Evaluation: 17:08 IV Fluids: 1000 Blood Products: none Estimated Blood Loss: 50 Urinary Output: none Blood Pressure Systolic: 148 Blood Pressure Diastolic: 76 Pulse Rate: 82 Respiratory Rate: 20 O2 Sat by Pulse Oximetry: 99 Temperature (Fahrenheit): 97.7 Pain Score (1-10): 1 Nausea: No Vomiting: No Complications none Patient Status: reacts, patent, none Hydration Status: adequate Emile Fair MD Jul 23, 2018 17:09
--- NOTE | 2018-07-23 17:42 | 48 Hour Post Anesthesia Eval ---
Post Anesthesia Evaluation Procedure: Revision and closure of bilateral axillary wounds Date of Evaluation: Jul 23, 2018 Time of Evaluation: 17:41 Blood Pressure Systolic: 136 0: 72 Pulse Rate: 64 Respiratory Rate: 20 Temperature (Fahrenheit): 97.6 O2 Sat by Pulse Oximetry: 98 Airway: patent Nausea: No Vomiting: No Pain Intensity: 2 Hydration Status: adequate Cardiopulmonary Status: stable Mental Status/LOC: patient returned to baseline Follow-up Care/Observations: n/a Post-Anesthesia Complications: none Follow-up care needed: N/A Emile Fair MD Jul 23, 2018 17:42
[2018-07-23] MEDS ORDERED: Docusate 100mg cap ORAL SCH (18:00)
[2018-07-23] MEDS ORDERED: PCA shift volume MISC SCH (19:00)
--- NOTE | 2018-07-23 20:30 | Operative Note - Dictated ---
DATE OF OPERATION: 07/23/2018 PREOPERATIVE DIAGNOSIS: Bilateral open axillary wounds, status post excision of stage III hidradenitis. POSTOPERATIVE DIAGNOSIS: Bilateral open axillary wounds, status post excision of stage III hidradenitis. PROCEDURES: 1. Preparation of left axillary wound for flap transfer. 2. Re-elevation of a lateral chest wall flap for closure of left axillary wound with flap measurements 10 x 5 cm. 3. Preparation of right axillary wound, status post excision of hidradenitis in preparation for flap closure. 4. Re-elevation of a lateral chest wall flap for closure of right axillary wound with flap measurements of 11 x 5 cm. SURGEON: Jessica Jack M.D. DRAWSTRING KNOTTER: Alma Lambert M.D. ANESTHESIA: General. COMPLICATIONS: None. DRAINS: Size 15 DAR on each side. DISPOSITION: Stable to the recovery room. INDICATIONS FOR SURGERY: This is a 27-year-old female, who is now 48 hours status post radical excision of bilateral axillary hidradenitis. She had been on IV antibiotics with dressing changes done at the bedside and is now prepared for definitive flap transfer. At the first operation, the lateral chest wall flaps had been elevated and upon exam before prepping the patient, we noted that both flaps had good perfusion and were viable from a vascular standpoint. DETAILS OF THE OPERATION: The patient was brought to the operating room and laid in the supine position on the operating table. Her bilateral axillae were prepped and draped in a sterile and usual fashion. We first began on the left side where the defect measured 10 x 8 cm. The wound was then debrided of some of the nonviable edges particularly at the skin edges where there appeared to be some ischemic changes. Once this was debrided, the wound was then copiously irrigated with pulse lavage and then the 10 x 5 cm lateral chest wall flap based off of perforators of the thoracodorsal artery was then re-elevated and over a 15 DAR drain, the axillary wound was covered and provided with soft tissue coverage by flap inset using 0 and 2-0 Vicryl sutures and then the donor site where the flap was harvested from was also closed with 0 and 2-0 Vicryl sutures and the skin was closed with autumn. The drain stitch that was used was a 3-0 nylon and this was secured with the DAR drain. We then turned our attention to the contralateral right axillary wound where the defect measured 11 x 7 cm. In a similar fashion, some of the nonviable tissue was debrided in preparation for flap transfer. The wound was then copiously irrigated with pulse lavage once again and the defect was noted and the flap was then re-elevated and measured 11 x 5 cm based off of perforators of the thoracodorsal artery once again on that side. The flap was then inset and the wound was provided with soft tissue coverage with the flap inset using 0 and 2-0 Vicryl sutures to inset the flap over size 15 DAR drain and the donor site was also closed using 0 and 2-0 Vicryl sutures and a combination of 2-0 Prolene and autumn were used to close the skin on this side. The DAR drain was secured using a 3-0 nylon suture. Bulky dressings were applied to both sides. The patient the procedure well. There were no complications. Jessica Jack M.D. DR: GLENN JOB#: [id number] CC:
[2018-07-23] MEDS ORDERED: Heparin 5000 units/ml inj SUBQ SCH (21:00)
[2018-07-24] VITALS: BP 153/94
[2018-07-24 04:30] VITALS: BP 149/106
[2018-07-24] MEDS: ceFAZolin sod 1 GM in D5W 55 ML IVPB SCH ×3 (06:17→23:16)
[2018-07-24] MEDS: PCA shift volume MISC SCH ×2 (07:00→19:00)
[2018-07-24 07:56] LABS: BASOPHILS % (AUTO) 1.3 % (0.0-2.0); HEMATOCRIT 36.8 % (37.0-47.0); HEMOGLOBIN 12.6 G/DL (12.0-16.0); LYMPHOCYTES % (AUTO) 24.6 % (20.0-45.0); MEAN CORPUSCULAR VOLUME 87 FL (80-99); MONOCYTES % (AUTO) 6.2 % (1.0-10.0); NEUTROPHILS % (AUTO) 65.8 % (45.0-75.0); PLATELET COUNT 303 K/UL (150-450); RED BLOOD COUNT 4.24 M/UL (4.20-5.40); RED CELL DISTRIBUTION WIDTH 10.5 % (11.6-14.8)
[2018-07-24 08:00] VITALS: BP 146/100
[2018-07-24 08:17] LABS: ANION GAP 8 mmol/L (5-15); BLOOD UREA NITROGEN 7 mg/dL (7-18); CALCIUM 9.5 MG/DL (8.5-10.1); CARBON DIOXIDE 28 MMOL/L (21-32); CHLORIDE 108 MMOL/L (98-107); CREATININE 0.7 MG/DL (0.55-1.30); POTASSIUM 3.9 MMOL/L (3.5-5.1); SODIUM 144 MMOL/L (136-145)
--- NOTE | 2018-07-24 08:40 | General Progress Note ---
Assessment/Plan Problem List: (1) Hidradenitis ICD Codes: L73.2 - Hidradenitis suppurativa SNOMED: 16792536 (2) Abscess ICD Codes: L02.91 - Cutaneous abscess, unspecified SNOMED: 396399417 Status: stable Assessment/Plan B/L Axillary Hidradenitis Suppurativa with Abscess - sp flap closure per Dr. Jack.. doing well, drains in place - cont pain control - stable - IVF and iv abx to be continues - mobilization - IS use - bowel regimen - supportive care I have spent over 45 minute regarding patient care and counseling along with 35 minutes of tbfq-gh-[id number] time. Althea Salas MD Please feel free to contact me at any time. Thank You. Subjective Allergies: Coded Allergies: No Known Allergies (Unverified , 07/20/18) Subjective s/p flap closure denies any complaints doing well no acute events overnight denies any n/v denies any cp or sob denies any diarrhea/constipation 12 point ros negative except for the above Objective Last 24 Hour Vital Signs Date Time Temp Pulse Resp B/P (MAP) Pulse Ox O2 Delivery O2 Flow Rate FiO2 07/24/18 08:00 19 07/24/18 04:30 98.5 86 19 149/106 (120) 98 07/24/18 04:00 19 07/24/18 00:00 18 07/24/18 00:00 98.0 85 18 153/94 (113) 98 07/23/18 21:00 Room Air 07/23/18 20:30 140/89 (106) 07/23/18 20:30 98.0 80 18 () 98 07/23/18 20:00 18 07/23/18 18:22 18 07/23/18 18:10 98.3 07/23/18 17:55 98.3 82 15 146/97 100 Nasal Cannula 3 07/23/18 17:43 87 17 152/89 100 Nasal Cannula 3 07/23/18 17:42 64 20 98 07/23/18 17:35 96 15 157/91 100 Nasal Cannula 3 07/23/18 17:25 90 11 160/94 100 Simple Mask 6 07/23/18 17:13 79 18 148/78 100 Simple Mask 6 07/23/18 17:09 82 20 99 07/23/18 17:08 82 15 154/82 100 Simple Mask 6 07/23/18 17:03 97.8 84 12 159/86 100 Simple Mask 6 07/23/18 12:00 98.7 90 20 139/91 (107) 98 07/23/18 12:00 18 07/23/18 09:00 Room Air Intake and Output 07/23/18 07/24/18 19:00 07:00 Intake Total 1250 ml 400 ml Output Total 68 ml 8 ml Balance 1182 ml 392 ml IV Total 1250 ml 400 ml Output Drainage Total 18 ml 8 ml Estimated Blood Loss 50 ml # Voids 6 Laboratory Tests 07/24/18 07:31: White Blood Count 9.0, Red Blood Count 4.24, Hemoglobin 12.6, Hematocrit 36.8L, Mean Corpuscular Volume 87, Mean Corpuscular Hemoglobin 29.8, Mean Corpuscular Hemoglobin Concent 34.3, Red Cell Distribution Width 10.5L, Platelet Count 303, Mean Platelet Volume 7.9, Neutrophils (%) (Auto) 65.8, Lymphocytes (%) (Auto) 24.6, Monocytes (%) (Auto) 6.2, Eosinophils (%) (Auto) 2.0, Basophils (%) (Auto ) 1.3, Sodium Level 144, Potassium Level 3.9, Chloride Level 108H, Carbon Dioxide Level 28, Anion Gap 8, Blood Urea Nitrogen 7, Creatinine 0.7, Estimat Glomerular Filtration Rate > 60, Glucose Level 105, Calcium Level 9.5 Height (Feet): 5 Height (Inches): 7.00 Weight (Pounds): 178 General Appearance: WD/WN, no apparent distress, alert EENT: PERRL/EOMI, normal ENT inspection Neck: non-tender, normal alignment, supple, normal inspection Cardiovascular: normal peripheral pulses, normal rate, regular rhythm Respiratory/Chest: chest wall non-tender, lungs clear, normal breath sounds, no respiratory distress, no accessory muscle use Abdomen: normal bowel sounds, non tender, soft, no organomegaly, no mass Extremities: normal range of motion, non-tender, normal inspection Neurologic: smooth stucco resurfacer II-XII grossly normal, no motor/sensory deficits, abnormal gait , alert, oriented x 3, responsive, normal mood/affect Skin: normal pigmentation Althea Salas MD Jul 24, 2018 08:40
[2018-07-24] MEDS: Docusate 100mg cap ORAL SCH ×2 (08:57→18:38)
[2018-07-24] MEDS: Heparin 5000 units/ml inj SUBQ SCH ×2 (08:59→20:47)
--- NOTE | 2018-07-24 11:03 | General Progress Note ---
Progress Note Progress Note Pt seen and examined. POD# 1 from closure of bilateral axillary wounds. Doing well. Will keep dressings in place till Thursday and likely Dc home after. Jessica Vazquez MD, MD Jul 24, 2018 11:03
[2018-07-24 12:00] VITALS: BP 140/100
[2018-07-24 16:00] VITALS: BP 148/107
[2018-07-24 20:56] VITALS: BP 146/97
[2018-07-25 00:18] VITALS: BP 140/98
[2018-07-25 04:39] VITALS: BP 137/92
[2018-07-25] MEDS: ceFAZolin sod 1 GM in D5W 55 ML IVPB SCH ×3 (06:50→23:05)
[2018-07-25] MEDS: PCA shift volume MISC SCH ×2 (07:00→19:25)
--- NOTE | 2018-07-25 07:06 | General Progress Note ---
Assessment/Plan Problem List: (1) Hidradenitis ICD Codes: L73.2 - Hidradenitis suppurativa SNOMED: 29065199 (2) Abscess ICD Codes: L02.91 - Cutaneous abscess, unspecified SNOMED: 042786541 Status: doing well, stable Assessment/Plan B/L Axillary Hidradenitis Suppurativa with Abscess - sp flap closure per Dr. Jack.. doing well, drains in place - cont pain control - stable - IVF and iv abx to be continues - mobilization - IS use - bowel regimen - supportive care I have spent over 45 minute regarding patient care and counseling along with 35 minutes of [id number] time. Althea Salas MD Please feel free to contact me at any time. Thank You. Subjective Allergies: Coded Allergies: No Known Allergies (Unverified , 07/20/18) Subjective s/p flap closure denies any complaints doing well no acute events overnight denies any n/v denies any cp or sob denies any diarrhea/constipation 12 point ros negative except for the above Objective Last 24 Hour Vital Signs Date Time Temp Pulse Resp B/P (MAP) Pulse Ox O2 Delivery O2 Flow Rate FiO2 07/25/18 04:39 98.5 95 18 137/92 (107) 100 07/25/18 04:00 19 07/25/18 00:18 98.6 86 18 140/98 (112) 97 07/25/18 00:00 19 07/24/18 21:04 Room Air 07/24/18 20:56 97.7 82 19 146/97 (113) 99 07/24/18 20:00 19 07/24/18 16:00 98.5 88 19 148/107 (121) 94 07/24/18 16:00 18 07/24/18 15:03 74 140/100 07/24/18 12:00 98.4 74 18 140/100 (113) 97 07/24/18 12:00 18 07/24/18 09:00 Room Air 07/24/18 08:00 19 07/24/18 08:00 98.4 86 18 146/100 (115) 99 Intake and Output 07/24/18 07/25/18 19:00 07:00 Intake Total 790 ml Output Total 4 ml Balance 786 ml Intake Oral 240 ml IV Total 550 ml Output Drainage Total 4 ml # Voids 3 Laboratory Tests 07/24/18 07:31: White Blood Count 9.0, Red Blood Count 4.24, Hemoglobin 12.6, Hematocrit 36.8L, Mean Corpuscular Volume 87, Mean Corpuscular Hemoglobin 29.8, Mean Corpuscular Hemoglobin Concent 34.3, Red Cell Distribution Width 10.5L, Platelet Count 303, Mean Platelet Volume 7.9, Neutrophils (%) (Auto) 65.8, Lymphocytes (%) (Auto) 24.6, Monocytes (%) (Auto) 6.2, Eosinophils (%) (Auto) 2.0, Basophils (%) (Auto ) 1.3, Sodium Level 144, Potassium Level 3.9, Chloride Level 108H, Carbon Dioxide Level 28, Anion Gap 8, Blood Urea Nitrogen 7, Creatinine 0.7, Estimat Glomerular Filtration Rate > 60, Glucose Level 105, Calcium Level 9.5 Height (Feet): 5 Height (Inches): 7.00 Weight (Pounds): 178 General Appearance: no apparent distress, alert EENT: PERRL/EOMI, normal ENT inspection, TMs normal, pharynx normal Neck: non-tender, normal alignment, supple, normal inspection Cardiovascular: normal peripheral pulses, normal rate, regular rhythm Respiratory/Chest: chest wall non-tender, lungs clear, normal breath sounds, no respiratory distress, no accessory muscle use Abdomen: normal bowel sounds, non tender, soft, no organomegaly, no mass Extremities: normal range of motion, non-tender, normal inspection Neurologic: [employer] systems II-XII grossly normal, no motor/sensory deficits, abnormal gait , alert, oriented x 3, responsive, normal mood/affect Skin: normal pigmentation, warm/dry Althea Salas MD Jul 25, 2018 07:06
[2018-07-25 07:40] LABS: BASOPHILS % (AUTO) 1.1 % (0.0-2.0); EOSINOPHILS % (AUTO) 8.5 % (0.0-3.0); HEMOGLOBIN 12.5 G/DL (12.0-16.0); LYMPHOCYTES % (AUTO) 36.3 % (20.0-45.0); MEAN CORPUSCULAR VOLUME 86 FL (80-99); MONOCYTES % (AUTO) 5.9 % (1.0-10.0); NEUTROPHILS % (AUTO) 48.2 % (45.0-75.0); PLATELET COUNT 308 K/UL (150-450); RED BLOOD COUNT 4.31 M/UL (4.20-5.40); RED CELL DISTRIBUTION WIDTH 10.5 % (11.6-14.8); WHITE BLOOD COUNT 7.5 K/UL (4.8-10.8)
[2018-07-25 07:47] LABS: ANION GAP 9 mmol/L (5-15); BLOOD UREA NITROGEN 7 mg/dL (7-18); CARBON DIOXIDE 28 MMOL/L (21-32); CHLORIDE 104 MMOL/L (98-107); CREATININE 0.7 MG/DL (0.55-1.30); POTASSIUM 3.7 MMOL/L (3.5-5.1); SODIUM 141 MMOL/L (136-145)
[2018-07-25 08:00] VITALS: BP 138/97
[2018-07-25] MEDS: Docusate 100mg cap ORAL SCH ×2 (08:38→17:46)
[2018-07-25] MEDS: Heparin 5000 units/ml inj SUBQ SCH ×2 (08:46→20:13)
[2018-07-25] MEDS ORDERED: PCA HYDROmorphone 1mg/ml 30 ML IV PRN (10:30)
[2018-07-25] MEDS ORDERED: Rate Change PCA 1 Each MISC PRN (10:30)
[2018-07-25 12:00] VITALS: BP 127/84
[2018-07-25 16:00] VITALS: BP 127/96
[2018-07-25 20:00] VITALS: BP 128/88
[2018-07-26] VITALS: BP 122/95
[2018-07-26 04:00] VITALS: BP 125/96
[2018-07-26] MEDS: ceFAZolin sod 1 GM in D5W 55 ML IVPB SCH (06:16)
[2018-07-26] MEDS: PCA shift volume MISC SCH (07:07)
[2018-07-26 08:00] VITALS: BP 152/101
[2018-07-26 08:03] LABS: BASOPHILS % (AUTO) 1.3 % (0.0-2.0); EOSINOPHILS % (AUTO) 11.4 % (0.0-3.0); HEMATOCRIT 39.8 % (37.0-47.0); HEMOGLOBIN 13.7 G/DL (12.0-16.0); LYMPHOCYTES % (AUTO) 38.2 % (20.0-45.0); MEAN CORPUSCULAR VOLUME 87 FL (80-99); MONOCYTES % (AUTO) 6.1 % (1.0-10.0); PLATELET COUNT 282 K/UL (150-450); RED BLOOD COUNT 4.57 M/UL (4.20-5.40); RED CELL DISTRIBUTION WIDTH 10.7 % (11.6-14.8); WHITE BLOOD COUNT 8.5 K/UL (4.8-10.8)
[2018-07-26 08:14] LABS: ANION GAP 10 mmol/L (5-15); BLOOD UREA NITROGEN 9 mg/dL (7-18); CALCIUM 9.6 MG/DL (8.5-10.1); CARBON DIOXIDE 24 MMOL/L (21-32); CHLORIDE 105 MMOL/L (98-107); CREATININE 0.6 MG/DL (0.55-1.30); SODIUM 139 MMOL/L (136-145)
[2018-07-26] MEDS: Heparin 5000 units/ml inj SUBQ SCH (08:55)
[2018-07-26] MEDS: Docusate 100mg cap ORAL SCH (08:56)
--- NOTE | 2018-07-26 10:35 | Discharge Instructions ---
Discharge Instructions Discharge Instructions Follow up with: PCP in 1 week, plastic surgeon in 1 week Call MD/Return to Hospital if: symptoms return or worsen Resume Normal Activity?: Yes Activity: resume normal activities For Congestive Heart Failure Reminder Report to your physician any weight gain of 5 pounds or more in one week. Althea Salas MD Jul 26, 2018 10:35
--- NOTE | 2018-07-26 10:44 | Discharge Summary ---
Discharge Summary Hospital Course Date of Admission Jul 20, 2018 at 12:04 Date of Discharge 07/26/18 Admitting Diagnosis HYDRADENITIS HPI Karen Lainez is a 27 year old female who was admitted on Jul 20, 2018 at 12:04 for asbcesses concerning for Hydradenitis Hospital Course 27 yo F PMH of HS presents with complaints of B/L axillary tenderness pain, swelling and intermittent drainage. Patient denied any fevers or chills at home. Dr. Jack was consulted. Patient underwent procedure for excision then flap closure was done. Patient was on iv abx during this time. Patient did well and improved as expected per plastics. Per plastics Dr. Jack patient to be dc'd back home today after wound dressing changes today Patient will f/u with Dr. Jack as scheduled abx : cefazolin PO 500mg q6hrs for 7 days, norco 5-325 for 7 days, zofran 4mg ODT prn, docusate B/L Axillary Hidradenitis Suppurativa with Abscess - sp flap closure per Dr. Jack.. doing well, drains in place - cont pain control - stable - IVF and iv abx to be continues - mobilization - IS use - bowel regimen - supportive care I have spent over 40 minute regarding patient care and in the discharge coordination of this patient patient stable for dc Althea Salas MD Please feel free to contact me at any time. Thank You. Discharge Condition Upon Discharge: stable Discharge Disposition Patient was discharged to home Discharge Diagnoses: (1) Hidradenitis (2) Abscess Discharge Instructions Discharge Instructions Follow up with: PCP in 1 week, plastic surgeon in 1 week Call MD/Return to Hospital if: symptoms return or worsen Activity: resume normal activities Althea Salas MD Jul 26, 2018 10:44
[2018-07-26] MEDS ORDERED: CEPHALEXIN500 MG ORAL (11:41)
[2018-07-26] MEDS ORDERED: NORCO 5-325 TA1 EACH ORAL (11:43)
[2018-07-26] MEDS ORDERED: ZOFRAN ODT8 MG ORAL (11:44)
[2018-07-26] MEDS ORDERED: DOCUSATE SODIU100 M2 ORAL (11:45)
[2018-07-26 12:00] VITALS: BP 140/91
[2018-07-26] MEDS ORDERED: Neosporin Oint Ud Pkt TOPIC SCH (12:00)
== END 2018-07-26 14:30 | disposition home health service (06) | DRG 572 ==
LOC: EMR 11:47 → 3E 12:04 → EDBEDREQ 12:46
PROC: 0H85XZZ Division of Chest Skin, External Approach (ICD-10-PCS; principal; 2018-07-21 11:30)
PROC: 0JBD0ZZ Excision of Right Upper Arm Subcutaneous Tissue and Fascia, Open Approach (ICD-10-PCS; principal; 2018-07-21 11:30)
PROC: 0JBF0ZZ Excision of Left Upper Arm Subcutaneous Tissue and Fascia, Open Approach (ICD-10-PCS; principal; 2018-07-21 11:30)
PROC: 0JX60ZZ Transfer Chest Subcutaneous Tissue and Fascia, Open Approach (ICD-10-PCS; 2018-07-23)
DX: L02.412 Cutaneous abscess of left axilla (principal); L02.411 Cutaneous abscess of right axilla; L73.2 Hidradenitis suppurativa
CPT/HCPCS: 36415; 80048; 80053; 81001; 81025; 83735; 85025; 85610; 85730; 93005; 94003; 94150; 99285; J2250; J2405